=== PATIENT | male | born 1990 | race Caucasian/White ===

== ENCOUNTER 2017-01-27 23:31 | Emergency (ER) | payer BC ==
[~2017-01-27] VITALS: Ht 175.3 cm; Wt 90.7 kg
[2017-01-28] MEDS ORDERED: Albuterol ud Inhalation HHN ONE
[2017-01-28] MEDS ORDERED: PredniSONE 20mg tab ORAL ONE
[2017-01-28] MEDS ORDERED: Ipratropium 0.02% Inh Soln 2.5ml UD HHN ONE
[2017-01-28 00:15] VITALS: BP 125/70
[2017-01-28] MEDS ORDERED: PREDNISONE20 MG ORAL (00:36)
[2017-01-28] MEDS ORDERED: ALBUTEROL SULF8.5 GM INH (00:36)
[2017-01-28 00:40] VITALS: BP 127/71
--- NOTE | 2017-01-28 03:39 | Emergency Room Report ---
History of Present Illness General Chief Complaint: Asthma Source: Patient Present Illness HPI 26-year-old male presents ED for evaluation of cough and wheezing. States symptoms started 2 days ago. Patient has history of asthma. Cough is dry. denies fevers or chills. Denies chest pain or shortness of breath. She smoking. Denies sick contacts or recent travel. No other aggravating or relieving factors. Denies any other associated symptoms Allergies: Coded Allergies: No Known Allergies (Unverified , 01/27/17) Patient History Past Medical History: asthma Past Surgical History: none Pertinent Family History: none Social History: Reports: smoking, Denies: alcohol use, drug use Immunizations: UTD Reviewed Nursing Documentation: PMH: Agreed, PSxH: Agreed Nursing Documentation-PMH Hx Asthma: Yes Review of Systems All Other Systems: negative except mentioned in HPI Physical Exam Vital Signs Date Time Temp Pulse Resp B/P Pulse Ox O2 Delivery O2 Flow Rate FiO2 01/27/17 23:44 97.9 81 18 122/69 94 Room Air Sp02 EP Interpretation: reviewed, normal General Appearance: no apparent distress, alert, GCS 15, non-toxic Head: normocephalic Eyes: bilateral eye PERRL, bilateral eye normal inspection ENT: normal ENT inspection Neck: normal inspection Respiratory: wheezing Cardiovascular #1: regular rate, rhythm, no edema Gastrointestinal: normal inspection Rectal: deferred Genitourinary: no CVA tenderness Musculoskeletal: normal inspection Neurologic: alert, oriented x3, responsive, motor strength/tone normal, sensory intact, speech normal Psychiatric: normal inspection Skin: normal inspection Lymphatic: normal inspection Medical Decision Making Diagnostic Impression: Primary Impression: Asthma attack ER Course Hospital Course 26-year-old male presents to ED complaining of cough, wheezing Differential diagnoses include: URI, bronchitis, asthma/COPD, pneumonia Clinical course Patient placed on stretcher. After initial history, physical exam reveals a male in no acute distress. Bilateral TM unremarkable. No pharyngeal erythema. No tonsillar exudates. No lymphadenopathy. Mild wheezing noted on exam, no signs of respiratory distress or retractions. Patient given Prednisone and albuterol/atrovent treatment in ED with symptoms improved. Reassurance given Diagnosis - asthma attack Stable and discharged home with prescriptions for albuterol inhaler, prednisone. Instructed to followup with PMD. Return to ED if symptoms recur or worsen Last Vital Signs Date Time Temp Pulse Resp B/P Pulse Ox O2 Delivery O2 Flow Rate FiO2 01/28/17 00:40 98.4 86 16 127/71 100 Room Air Status: improved Disposition: HOME, SELF-CARE Condition: Stable Scripts Prednisone* (PREDNISONE*) 20 Mg Tablet 40 MG ORAL DAILY, #10 TAB Prov: NUVIA BANEGAS M.D. 01/28/17 Albuterol Sulfate* (ALBUTEROL SULFATE MDI*) 8.5 Gm Hfa.aer.ad 2 PUFF INH Q6H, #1 EA 0 Refills Prov: NUVIA BANEGAS M.D. 01/28/17 Referrals: NOT CHOSEN MINDY/,REFERRING (PCP) Patient Instructions: Asthma, Adult NUVIA BANEGAS M.D. Jan 28, 2017 03:39
== END 2017-01-28 00:40 | disposition home or self-care (01) ==
LOC: EMR 23:59
DX: J45.901 Unspecified asthma with (acute) exacerbation (principal)
CPT/HCPCS: 94640; 94664; 99284